=== PATIENT | male | born 1955 | race Two or more races ===

== ENCOUNTER → 2020-01-16 | Outpatient (CLI) | payer OTHER ==
[~2020-01-16] VITALS: Ht 167.6 cm; Wt 89.8 kg
[~2020-01-16] MED LIST: CIPRO HC OTIC S10 ML OT; CLOTRIMAZOLE-BE30 ML OTIC
== END | disposition home or self-care (01) ==
LOC: OFIC 805 11:00
PROVIDERS: ATTEND Otolaryngology
DX: H61.21 Impacted cerumen, right ear (principal); H60.8X1 Other otitis externa, right ear; H90.42 Sensorineural hearing loss, unilateral, left ear, with unrestricted hearing on the contralateral side

== ENCOUNTER 2020-01-27 13:40 | Outpatient (CLI) | payer OTHER | END 2020-01-27 16:43 | disposition home or self-care (01) | LOC: OFIC 805 13:40 | PROVIDERS: ATTEND Otolaryngology | DX: H60.8X1 Other otitis externa, right ear (principal); H61.22 Impacted cerumen, left ear; H90.42 Sensorineural hearing loss, unilateral, left ear, with unrestricted hearing on the contralateral side ==

== ENCOUNTER → 2020-02-18 | Outpatient (CLI) | payer OTHER | END | disposition home or self-care (01) | LOC: OFIC 805 10:21 | PROVIDERS: ATTEND Otolaryngology | DX: H90.42 Sensorineural hearing loss, unilateral, left ear, with unrestricted hearing on the contralateral side (principal) ==

== ENCOUNTER 2020-03-24 15:19 | Outpatient (CLI) | payer OTHER | END 2020-03-24 16:00 | disposition home or self-care (01) | LOC: OFIC 805 15:19 | PROVIDERS: ATTEND Otolaryngology | DX: H90.42 Sensorineural hearing loss, unilateral, left ear, with unrestricted hearing on the contralateral side (principal) ==